=== PATIENT | male | born 1940 | race Caucasian/White ===

== ENCOUNTER 2021-12-02 13:04 | Inpatient (IN) ==
[2021-12-02 14:04] LABS: Basophils # 0.1 K/mcL (0.0-0.2); Eosinophils # 0.2 K/mcL (0.0-0.6); Eosinophils % 2.6 %; Hematocrit 41.6 % (37.5-50.1); Hemoglobin 13.5 g/dL (12.9-16.9); Lymphocytes # 1.5 K/mcL (0.6-4.6); Lymphocytes % 21.7 %; Mean Corpuscular HGB Conc 32.5 g/dL (31.6-35.5); Mean Corpuscular Hemoglobin 30.6 pg (28.0-33.3); Mean Corpuscular Volume 94.3 fL (83.0-100.0); Mean Platelet Volume 10.6 fL (9.4-12.4); Monocytes # 0.5 K/mcL (0.0-1.3); Monocytes % 7.4 %; Neutrophils # 4.6 K/mcL (1.6-8.9); Platelet Count 139 K/mcL (140-400); Red Blood Count 4.41 M/mcL (4.19-5.50); Red Cell Distribution Width 14.1 % (11.5-14.5); Segmented Neutrophils % 66.3 %; White Blood Count 6.9 K/mcL (4.3-11.1)
[2021-12-02 14:20] LABS: Troponin I 0.09 ng/mL (< 0.04)
[2021-12-02 14:26] LABS: Alanine Aminotransferase 14 Units/L (7-52); Albumin 3.7 g/dL (3.5-5.7); Albumin/Globulin Ratio 1.2 (1.1-2.2); Alkaline Phosphatase 53 Units/L (34-104); Aspartate Amino Transferase 18 Units/L (13-39); BUN/Creatinine Ratio 14 (6-26); Blood Urea Nitrogen 18 mg/dL (8-23); Calcium 8.8 mg/dL (8.6-10.3); Carbon Dioxide 26 mEq/L (23-29); Chloride 108 mEq/L (98-107); Globulin 3.1 g/dL (2.4-3.5); Glucose 89 mg/dL (70-105); Lipase 15 Units/L (11-82); Osmolality,Calculated 291 (280-300); Potassium 3.8 mEq/L (3.5-5.1); Sodium 140 mEq/L (136-145); Total Protein 6.8 g/dL (6.4-8.9); eGFR For African Americans > 60 (> 60); eGFR For Non-African Americans 53 (> 60)
[2021-12-02] MEDS ORDERED: Naloxone 0.4 MG/ML INJ IVP PRN (15:27)
[2021-12-02] MEDS ORDERED: Ondansetron 4 MG/2 ML VIAL IVP PRN (15:27)
[2021-12-02] MEDS ORDERED: Acetaminophen 325 MG TABLET PO PRN (15:27)
[2021-12-02] MEDS ORDERED: Morphine Sulfate 2 MG/ML SYRINGE IVP ONE (15:32)
[2021-12-02] MEDS ORDERED: Nitroglycerin 0.4 MG TAB.SUBL SL PRN (15:32)
[2021-12-02] MEDS ORDERED: *HR* Heparin 5,000 UNIT/ML VIAL IVP ONE (15:34)
[2021-12-02] MEDS ORDERED: *HR* Heparin 5,000 UNIT/ML VIAL IVP PRN ×2 (15:34)
[2021-12-02] MEDS ORDERED: Dextrose 4 GM Chewable Tablets PO PRN ×2 (15:37)
[2021-12-02] MEDS ORDERED: D5% in Water 1,000 ML IVC PRN (15:37)
[2021-12-02] MEDS ORDERED: *HR* Dextrose 50 % in Water (Syg) 50 ML SYRINGE IVP PRN (15:37)
[2021-12-02] MEDS ORDERED: Perflutren Lipid Microsphere 1.3 ML in 0.9 % Sodium Chloride 8.7 ML IVP PRN (15:38)
[2021-12-02] MEDS: Heparin 25,000UNIT/250ML 1/2NS 25,000 UNIT/250 ML IV.SOLN IVC SCH (16:37)
[2021-12-02 16:47] LABS: Hemoglobin 14.4 g/dL (12.9-16.9); Mean Corpuscular HGB Conc 33.5 g/dL (31.6-35.5); Mean Corpuscular Hemoglobin 30.8 pg (28.0-33.3); Mean Corpuscular Volume 91.9 fL (83.0-100.0); Mean Platelet Volume 11.5 fL (9.4-12.4); Platelet Count 141 K/mcL (140-400); Red Blood Count 4.68 M/mcL (4.19-5.50); Red Cell Distribution Width 14.2 % (11.5-14.5); White Blood Count 7.1 K/mcL (4.3-11.1)
[2021-12-02 16:58] LABS: Heparin anti-factor XA UFH < 0.04 IU/mL (0.30-0.70); INR 1.1; Prothrombin Time 12.4 Seconds (9.4-12.1)
[2021-12-02 17:00] LABS: Activated Partial Thrombo Time 26.3 Seconds (26.0-36.0)
[2021-12-03 01:29] LABS: Red Cell Distribution Width 14.2 % (11.5-14.5)
[2021-12-03 01:31] LABS: Basophils # 0.1 K/mcL (0.0-0.2); Eosinophils # 0.4 K/mcL (0.0-0.6); Eosinophils % 5.2 %; Hemoglobin 14.4 g/dL (12.9-16.9); Immature Granulocytes % 1.3 % (0-4); Immature Platelets 5.5 % (1.1-6.1); Lymphocytes # 1.9 K/mcL (0.6-4.6); Lymphocytes % 26.5 %; Mean Corpuscular HGB Conc 32.7 g/dL (31.6-35.5); Mean Corpuscular Hemoglobin 30.6 pg (28.0-33.3); Mean Corpuscular Volume 93.4 fL (83.0-100.0); Mean Platelet Volume 10.9 fL (9.4-12.4); Monocytes # 0.6 K/mcL (0.0-1.3); Monocytes % 7.9 %; Neutrophils # 4.2 K/mcL (1.6-8.9); Platelet Count 134 K/mcL (140-400); Red Blood Count 4.71 M/mcL (4.19-5.50); Segmented Neutrophils % 58.1 %; White Blood Count 7.2 K/mcL (4.3-11.1)
[2021-12-03 01:44] LABS: BUN/Creatinine Ratio 14 (6-26); Blood Urea Nitrogen 19 mg/dL (8-23); Carbon Dioxide 27 mEq/L (23-29); Chloride 107 mEq/L (98-107); Cholesterol 144 mg/dL (< 200); Glucose 85 mg/dL (70-105); HDL Cholesterol 48 mg/dL (40-59); LDL Cholesterol,Calculated 81 mg/dL (< 100); Osmolality,Calculated 290 (280-300); Potassium 4.2 mEq/L (3.5-5.1); Sodium 139 mEq/L (136-145); Triglycerides 73 mg/dL (< 150); eGFR For African Americans > 60 (> 60); eGFR For Non-African Americans 52 (> 60)
[2021-12-03] MEDS ORDERED: Regadenoson 0.4 MG/5 ML SYRINGE IVP ONE (06:19)
[2021-12-03] MEDS: Aspirin 81 MG TAB.CHEW PO SCH (07:38)
[2021-12-03] MEDS ORDERED: Morphine Sulfate 2 MG/ML SYRINGE IVP ONE (10:06)
[2021-12-03] MEDS ORDERED: *HR* FentaNYL (PF) 100 MCG/2 ML VIAL ONE (10:24)
[2021-12-03] MEDS ORDERED: 0.9 % Sodium Chloride 1,000 ML ONE (10:25)
[2021-12-03] MEDS ORDERED: *HR* Heparin 10,000 UNIT/10 ML VIAL ONE (10:25)
[2021-12-03] MEDS ORDERED: Nitroglycerin 1,000 MCG/5 ML VIAL IV ONE (10:25)
[2021-12-03] MEDS ORDERED: Heparin 1,000 UNITS/500 mL 500 ML ONE (10:25)
[2021-12-03] MEDS ORDERED: *HR* Midazolam HCl 2 MG/2 ML VIAL ONE (10:25)
[2021-12-03] MEDS ORDERED: ISOVUE-370 200 ML INFUS..BTL ONE (10:25)
[2021-12-03] MEDS: Heparin 25,000UNIT/250ML 1/2NS 25,000 UNIT/250 ML IV.SOLN IVC SCH (11:57)
[2021-12-03] MEDS: Metoprolol XL (24 HR) Succ 25 MG TAB.ER.24H PO SCH ×2 (12:28→14:12)
[2021-12-03] MEDS: Ringers Solution, Lactated 1,000 ML IVC SCH (12:28)
[2021-12-04] MEDS: Ringers Solution, Lactated 1,000 ML IVC SCH (02:13)
[2021-12-04 05:06] LABS: Potassium 4.5 mEq/L (3.5-5.1)
[2021-12-04] MEDS: Aspirin 81 MG TAB.CHEW PO SCH (08:24)
[2021-12-04] MEDS: Metoprolol XL (24 HR) Succ 25 MG TAB.ER.24H PO SCH (08:25)
[2021-12-04 08:26] LABS: Hematocrit 44.9 % (37.5-50.1); Hemoglobin 14.6 g/dL (12.9-16.9); Mean Corpuscular HGB Conc 32.5 g/dL (31.6-35.5); Mean Corpuscular Hemoglobin 30.6 pg (28.0-33.3); Mean Corpuscular Volume 94.1 fL (83.0-100.0); Mean Platelet Volume 10.8 fL (9.4-12.4); Red Blood Count 4.77 M/mcL (4.19-5.50); Red Cell Distribution Width 14.3 % (11.5-14.5); White Blood Count 7.5 K/mcL (4.3-11.1)
[2021-12-04 08:43] LABS: Calcium 9.2 mg/dL (8.6-10.3); Potassium 4.4 mEq/L (3.5-5.1)
[2021-12-04] MEDS ORDERED: Isosorbide MONOnitrate (24 HR) 30 MG TAB.ER.24H PO SCH (09:00)
[2021-12-04 11:29] VITALS: BP 116/71; PULSE 68; TEMP 99.6; O2SAT 97
[2021-12-04] MEDS ORDERED: *HR* Heparin 5,000 UNIT/ML VIAL SQ SCH (14:00)
== END 2021-12-04 13:43 | disposition home or self-care (01) | DRG 281 ==
LOC: 2ANU 13:04 → EMEROOARM 13:04 → SUATTDRO 15:27 → 2ANU 16:00
PROVIDERS: ADMIT Internal Medicine; ATTEND General Practice